=== PATIENT | female | born 2000 | race Caucasian/White ===

== ENCOUNTER 2021-07-08 08:24 | Emergency (ER) | payer BC, SELFPAY ==
--- NOTE | ~2021-07-08 | CT_ITS ---
EXAMINATION: CT abdomen pelvis w con DATE: 07/08/2021 10:47 INDICATION: Upper abdominal pain for one week TECHNIQUE: Computed tomography (CT) of the abdomen and pelvis was performed with 100 CC Omnipaque 350 intravenous contrast. Automated exposure control and iterative reconstruction technique were employe d. Exam dose: 983.16 mGy-cm total exam DLP. COMPARISON: None. FINDINGS: The lung bases are clear. Normal heart size. No pericardial or pleural effusion. The liver, gallbladder, bile ducts, spleen, pancreas, pancreatic duct, and adrenal glands and kidneys are unremarkable. No urinary tract calculus or hydroureteronephrosis. Normal caliber of the abdominal aorta. No intraperitoneal or retroperitoneal or pelvic mass lesion or adenopathy or ascites. Normal appendix. No bowel obstruction, bowel wall thickening, pneumatosis or intraperitoneal free air . Small fat-containing umbilical hernia. An IUD is in expected position within the uterus. 2 x 2.7 cm left ovarian cyst. Numerous sclerotic lesions of the pelvis, hips, sacrum and thoracic and lumbar spine and occasional s clerotic rib lesions. Consider osteopoikilosis. IMPRESSION: 2 x 2.7 cm left ovarian cyst IUD in expected position Osteopoikilosis Reviewed, dictated and finalized at [facility]. Reviewed, dictated and finalized at [facility].
--- NOTE | 2021-07-08 08:29 | ECG_ITS ---
Measurements Intervals [place] Rate: 78 P: 26 MO: 187 QRS: 51 QRSD: 109 T: 53 QT: 350 QTc: 399 Interpretive Statements SINUS RHYTHM LOW QRS VOLTAGE IN PRECORDIAL LEADS [QRS DEFLECTION < 1.0 mV IN CHEST LEADS] OTHERWISE NORMAL TRACING NO PREVIOUS ECG AVAILABLE FOR COMPARISON Electronically Signed On 07-08-2021 16:57:13 CDT by David Bullock M.D.
[2021-07-08 08:32] VITALS: BP 146/98; PULSE 109; RESP 16; TEMP 36.7; O2SAT 99
[2021-07-08 08:47] LABS: Hematocrit 43.7 % (35.0-49.0); Hemoglobin 15.4 g/dL (12.0-15.0); Mean Corpuscular HGB Conc 35.2 g/dL (32.0-36.0); Mean Corpuscular Hemoglobin 30.6 pg (27.0-31.0); Mean Corpuscular Volume 86.9 fL (78.0-102.0); Mean Platelet Volume 11.3 fl (9.2-11.8); Platelet Count Result 257 K/mm3 (150-420); Red Blood Count 5.03 M/mm3 (4.20-5.40); Red Cell Distribution Width 11.8 % (11.6-14.4); White Blood Count 9.5 K/mm3 (4.8-10.8)
[2021-07-08 09:02] LABS: Band Neutrophils Percent 0 % (0-6); Eosinophils Absolute Manual 0.19 K/mm3 (0.02-0.5); Eosinophils Percent Manual 2 % (1-6); Lymphocytes Absolute Manual 3.61 K/mm3 (1.1-4.5); Lymphocytes Percent Manual 38 % (18-44); Monocytes Absolute Manual 0.47 K/mm3 (0.1-0.90); Monocytes Percent Manual 5 % (3-9); Neutrophils Absolute Manual 5.22 K/mm3 (1.7-7.2); Neutrophils Percent Manual 55 % (46-73); Platelet Estimate Adequate (Adequate); Total Cells Counted 100
[2021-07-08 09:04] LABS: Lactic Acid Reflex 0.8 mmol/L (0.4-2.0)
--- NOTE | 2021-07-08 09:05 | ED.ABDPAIN ---
HPI - Abdominal Pain General Chief Complaint: Abdominal Pain Stated Complaint: ambulance Time Seen by Provider: 07/08/21 09:06 Source: patient and EMS Mode of arrival: EMS Limitations: no limitations History of Present Illness HPI narrative: this is a 20-year-old female brought in by EMS with a crampy abdominal pain this started little bit after Easter intermittent with some nausea vomiting with episodes of diarrhea, with no fever chills no significant past medical history. There is no chest pain no shortness of breath no dysuria or hematuria. Onset (ago): week(s) Pain Consistency: intermittent Severity: moderate Quality: cramping Radiation: epigastric Exacerbating factors: vomiting Related Data Allergies Allergy/AdvReac Type Severity Reaction Status Date / Time No Known Allergies Allergy Verified 07/08/21 08:36 Review of Systems Review of Systems: All systems reviewed & are unremarkable except as noted in HPI and below PMFSH Past Medical History Medical History Patient denies medical problems Exam Const: General: no acute distress Orientation/consciousness: patient oriented x3 HENMT: Head: normal to inspection Eyes: Conjunctivae: conjunctivae normal Pupils: Equal, round and reactive pupils present Neck: Neck: normal visual inspection, no lymphadenopathy and no meningeal signs Chest: Chest palpation & inspection: normal inspection of the chest Resp: Effort & Inspection: normal respiratory effort Auscultation: clear to auscultation bilaterally Cardio: Rate: regular rate Rhythm: regular rhythm GI: GI Palp: Yes Soft to palpation and Yes Tenderness to palpation present (GI) Percussion: Yes normal to percussion : General: Yes no CVA tenderness Urinary Catheter: Urinary Catheter: patent and draining Back/Spine/Pelvis: Back: no CVA tenderness Skin: General skin exam: normal color Rashes: no rashes Neuro: General: patient oriented x3 Extrem: General: normal to inspection and no pedal edema Psych: Mental Status: mental status grossly normal Affect: normal affect Course Course Emergency Course: patient started on IV fluids given Zofran for nausea labs reviewed with patient as well as CT scan of the abdomen. reassessment of patient and patient is improved received IV fluids. Vital Signs Vital signs: Vital Signs Temperature 36.7 C 07/08/21 08:32 Pulse Rate 109 H 07/08/21 08:32 Respiratory Rate 16 07/08/21 08:32 Blood Pressure 146/98 H 07/08/21 08:32 Pulse Oximetry 99 07/08/21 08:32 Temperature 36.7 C 07/08/21 08:32 Pulse Rate 109 H 07/08/21 08:32 Respiratory Rate 16 07/08/21 08:32 Blood Pressure 146/98 H 07/08/21 08:32 Pulse Oximetry 99 07/08/21 08:32 MDM - Abdominal Pain Lab Data Result diagrams: 07/08/21 08:39 07/08/21 08:39 Labs: Lab Results 07/08/21 07/08/21 07/08/21 Range/Units 08:39 08:39 08:39 WBC 9.5 (4.8-10.8) K/mm3 RBC 5.03 (4.20-5.40) M/mm3 Hgb 15.4 H (12.0-15.0) g/dL Hct 43.7 (35.0-49.0) % MCV 86.9 (78.0-102.0) fL MCH 30.6 (27.0-31.0) pg MCHC 35.2 (32.0-36.0) g/dL RDW 11.8 (11.6-14.4) % Plt Count 257 (150-420) K/mm3 MPV 11.3 (9.2-11.8) fl Immature Gran % (Auto) Not Reportable Neut % (Auto) Not Reportable Lymph % (Auto) Not Reportable [place] % (Auto) Not Reportable Eos % (Auto) Not Reportable Baso % (Auto) Not Reportable Lymph # (Auto) Not Reportable [place] # (Auto) Not Reportable Eos # (Auto) Not Reportable Baso # (Auto) Not Reportable Abs Immat Gran (auto) Not Reportable Absolute Neuts (auto) Not Reportable Absolute Nucleated RBC Not Reportable Total Counted 100 Neutrophils % (Manual) 55 (46-73) % Band Neutrophils % 0 (0-6) % Lymphocytes % (Manual) 38 (18-44) % Monocytes % (Manual) 5 (3-9) % Eosinophils %
[2021-07-08] MEDS: SODIUM CHLORIDE 0.9% IV 1,000 ML 999 ML IV CONT (09:06)
[2021-07-08] MEDS: ONDANSETRON INJ 4 MG/2 ML VIAL IV PUSH (09:07)
[2021-07-08 09:13] LABS: Alanine Aminotransferase 71 U/L (14-59); Albumin Level 4.2 g/dL (3.4-5.0); Alkaline Phosphatase 82 U/L (50-130); Anion Gap 9 mmol/L (8-16); Aspartate Amino Transferase 29 U/L (15-37); Bilirubin,Total 0.3 mg/dL (0.00-1.00); Blood Urea Nitrogen 10 mg/dL (7-18); Calcium 8.9 mg/dL (8.5-10.1); Carbon Dioxide 26 mmol/L (21-32); Chloride 103 mmol/L (98-108); Estimated Glomerular Filt Rate > 60; Glucose 99 mg/dL (70-99); Lipase 296 U/L (73-393); Osmolality Calculated 285 mOsm/kg (285-295); Potassium 3.5 mmol/L (3.5-5.1); Sodium 138 mmol/L (136-145); Total Protein 7.6 g/dL (6.4-8.2); Troponin I 6.9 ng/L (0.00-60.4)
[2021-07-08 10:26] LABS: Add Urine Microscopic? NO; Appearance Urine Clear (Clear); Bilirubin Urine Negative (Negative); Blood Urine Negative (Negative); Color Urine Light Yellow (Yellow); Glucose Urine UA Negative (Negative); Ketones Urine Negative (Negative); Leukocyte Esterase Ur Negative (Negative); Nitrate Urine Negative (Negative); Protein Urine Negative (Negative); Urobilinogen Urine 0.2 mg/dL (0.2-1.0)
[2021-07-08 10:27] LABS: Pregnancy On Board Control Positive; Urine Pregnancy Test Negative
[2021-07-08 11:41] VITALS: BP 128/77; PULSE 72; RESP 16; TEMP 36.9; O2SAT 100
== END 2021-07-08 11:43 | disposition home or self-care (01) ==
PROVIDERS: Emergency Provider Emergency Medicine
DX: K52.9 Noninfective gastroenteritis and colitis, unspecified (principal)
CPT/HCPCS: 36415; 74177; 80053; 81003; 81025; 83605; 83690; 84484; 85025; 93005; 96361; 96374; 99284; J2405; J7030; Q9967